=== PATIENT | male | born 1955 | race Caucasian/White ===

== ENCOUNTER → 2020-10-28 | Outpatient (CLI) | payer BC ==
[~2020-10-28] MED LIST: ALTACE5 MG PO; ASPIRIN81 M1 PO; CENTRUM TABLET1 EACH PO; CO Q-10100 MG PO; FOLIC ACID0.4 MG PO; INVOKANA PO; METFORMIN HCL500 MG PO; PANTOPRAZOLE SO40 MG PO; VYTORIN 10-401 EACH PO; ZIAC 5-6.25 MG1 EACH PO; ZOLOFT PO
== END ==
LOC: DX 07:22
PROVIDERS: ATTEND Internal Medicine Gastroenterology
DX: D64.9 Anemia, unspecified (principal); R63.4 Abnormal weight loss
CPT/HCPCS: 74250; U0002